=== PATIENT | male | born 1945 | race Caucasian/White ===

== ENCOUNTER 2018-04-29 13:52 | Day surgery (SDC) | payer MEDICARE, OTHER ==
[2018-04-23 11:37] LABS: BASOPHILS % (AUTO) 0.4 % (0-1); EOSINOPHILS # (AUTO) 0.1 X10'3 (0-0.9); HEMATOCRIT 35.3 % (42.0-52.0); HEMOGLOBIN 12.3 g/dl (14.0-17.9); LYMPHOCYTES # (AUTO) 0.8 X10'3 (1.1-4.8); LYMPHOCYTES % (AUTO) 19.4 % (21-51); MEAN CORPUSCULAR HEMOGLOBIN 33.9 PG (27.0-31.0); MEAN CORPUSCULAR HGB CONC 34.9 % (33.0-36.5); MEAN CORPUSCULAR VOLUME 97.2 FL (78-98); MEAN PLATELET VOLUME 8.1 FL (7.4-10.4); MONOCYTES # (AUTO) 0.4 X10'3 (0-0.9); MONOCYTES % (AUTO) 9.6 % (2-12); NEUTROPHILS # (AUTO) 2.9 X10'3 (1.8-7.7); NEUTROPHILS % (AUTO) 68.6 % (42-75); PLATELET COUNT 211 X10'3 (140-440); RED BLOOD COUNT 3.63 X10'6 (4.70-6.10); RED CELL DISTRIBUTION WIDTH 15.1 % (11.5-14.5); WHITE BLOOD COUNT 4.2 X10'3 (4.5-11.0)
[2018-04-23 11:46] LABS: ALBUMIN 3.6 G/DL (3.4-5.0); ANION GAP 10 (8-16); BLOOD UREA NITROGEN 30 MG/DL (7-18); BUN/CREATININE RATIO 26.3 (5.4-32.0); CALCIUM 8.6 MG/DL (8.5-10.1); CHLORIDE 102 MMOL/L (99-107); CREATININE 1.14 MG/DL (0.60-1.10); GLUCOSE 109 MG/DL (70-104); INR 1.2 INR; PARTIAL THROMBOPLASTIN TIME 33 SECONDS (22-32); POTASSIUM 3.7 MMOL/L (3.5-5.1); PROTHROMBIN TIME 12.3 SECONDS (9.0-12.0); SODIUM 138 MMOL/L (135-145); TOTAL CARBON DIOXIDE 25.7 MMOL/L (24-32); eGFR 64 ML/MIN
[2018-04-29] VITALS (9 sets, daily range): BP systolic 120–168; BP diastolic 51–69
[~2018-04-29] VITALS: Ht 182.9 cm; Wt 127.5 kg
[~2018-04-29 13:52] MED LIST: AMLO1CAP54 PO; ASPI-1009 PO; ATOR80TA PO; CLOP75TA35 PO; LINA5TAB4 PO; RIVA20TA PO
[2018-04-29] MEDS ORDERED: LORazepam 0.5 MG tablet PO PRN (14:20)
[2018-04-29] MEDS ORDERED: diphenhydrAMINE 25mg capsule PO PRN (14:20)
[2018-04-29] MEDS ORDERED: normal saline 1000ml 1,000 ML IV SCH ×2 (14:20→18:30)
[2018-04-29] MEDS ORDERED: OLME1TAB54 (14:27)
[2018-04-29] MEDS ORDERED: FURO-149 PO (14:27)
[2018-04-29] MEDS ORDERED: [UNRECOGNIZED DRUG - CODE] PO (14:27)
[2018-04-29] MEDS ORDERED: SILD50TA PO (14:27)
[2018-04-29] MEDS ORDERED: METF-517 PO (14:27)
[2018-04-29] MEDS ORDERED: POTA20TA10 PO (14:27)
[2018-04-29] MEDS ORDERED: phenylephrine 10mg/ml inj. ONE (15:26)
[2018-04-29] MEDS ORDERED: iohexol 350MG/ML 100ml bottle IV ONE (15:26)
[2018-04-29] MEDS ORDERED: atropine 0.1mg/ml 10ml syringe ONE (15:26)
[2018-04-29] MEDS ORDERED: iohexol 350 MG/ML 50ML vial IV ONE (15:26)
[2018-04-29] MEDS ORDERED: heparin 1,000unit/ml 10ml vial 0 ML ONE (15:26)
[2018-04-29] MEDS ORDERED: DOPamine 400mg/D5W 250ml 0 ML IV ONE (15:27)
[2018-04-29] MEDS ORDERED: LIDOcaine 1% w/EPI 1:100,000 30ml vial (MDV) ONE ×2 (15:30→16:07)
[2018-04-29] MEDS ORDERED: HYDROcodone/acetaminophen 10/325mg tab PO PRN (18:30)
[2018-04-29] MEDS ORDERED: HYDROcodone/acetaminophen 5mg/325mg tablet PO PRN (18:30)
== END 2018-04-29 21:20 | disposition home or self-care (01) ==
LOC: SSTAY O 13:52 → PCU 3S 17:02 → SSTAY O 21:20
PROVIDERS: ATTEND Internal Medicine Interventional Cardiology
DX: I65.23 Occlusion and stenosis of bilateral carotid arteries (principal); I25.118 Atherosclerotic heart disease of native coronary artery with other forms of angina pectoris; I48.0 Paroxysmal atrial fibrillation; E11.9 Type 2 diabetes mellitus without complications; I10 Essential (primary) hypertension; E78.2 Mixed hyperlipidemia; I70.213 Atherosclerosis of native arteries of extremities with intermittent claudication, bilateral legs; Z72.89 Other problems related to lifestyle; Z79.82 Long term (current) use of aspirin; Z79.84 Long term (current) use of oral hypoglycemic drugs; Z95.5 Presence of coronary angioplasty implant and graft; Z86.79 Personal history of other diseases of the circulatory system; Z87.891 Personal history of nicotine dependence; Z79.02 Long term (current) use of antithrombotics/antiplatelets; Z79.899 Other long term (current) drug therapy; Z98.890 Other specified postprocedural states
CPT/HCPCS: 36140; 36222; 36415; 75716; 80048; 82948; 85025; 85610; 85730; 93005; A6257; C1760; C1769; C1894; J1644; J2370; J3490; J7030; Q0163; Q9967; 36221; 36224; A4620; J0461; J1265